=== PATIENT | female | born 1990 | race Caucasian/White ===

== ENCOUNTER 2019-05-16 00:16 | Emergency (ER) | payer OTHER ==
[~2019-05-16] VITALS: Ht 170.2 cm; Wt 59.0 kg
[2019-05-16 01:56] VITALS: BP 98/55
== END 2019-05-16 02:11 | disposition home or self-care (01) ==
LOC: ER 00:38
DX: R42 Dizziness and giddiness (principal); Z88.1 Allergy status to other antibiotic agents
CPT/HCPCS: 81025; 99283